=== PATIENT | female | born 1950 | race Caucasian/White ===

== ENCOUNTER → 2017-07-08 | Outpatient (CLI) | payer OTHER ==
[~2017-07-08] MED LIST: ASPIRIN325 PO; NORCO 5-325 TA1 EACH PO; ULTRAM50 MG PO
== END ==
LOC: M.MRI 13:22
DX: S83.242A Other tear of medial meniscus, current injury, left knee, initial encounter (principal); M94.262 Chondromalacia, left knee; Z91.81 History of falling; X58.XXXA Exposure to other specified factors, initial encounter; Y93.89 Activity, other specified; Y92.89 Other specified places as the place of occurrence of the external cause; Y99.8 Other external cause status

== ENCOUNTER → 2017-07-15 | Day surgery (SDC) | payer OTHER ==
[2017-07-15 11:53] LABS: HEMATOCRIT 42.3 % (37.0-47.0); HEMOGLOBIN 14.2 gm/dL (12.0-15.0); MCH 31.5 pg (26.0-34.0); MCHC 33.5 g/dL (28.0-37.0); MCV 94.1 fL (80.0-100.0); MPV 9.1 fl. (7.2-11.1); RBC 4.49 mil/uL (4.20-5.00); RDW-CV 14.4 % (10.5-14.5); WBC 4.8 thou/uL (4.0-11.0)
[2017-07-15 12:04] LABS: CREATININE 0.7 mg/dL (0.6-1.3); POTASSIUM 3.7 mmol/L (3.5-5.1)
[2017-07-15 12:09] LABS: ALBUMIN 3.4 g/dL (3.4-5.0); TOTAL BILIRUBIN 0.7 mg/dL (<0.1-1.0)
--- NOTE | 2017-07-15 17:59 | EKG ---
[place] [address] ELECTROCARDIOGRAM REPORT Name: CONSTANTIN OLIVER Room: [facility]#: [id number] Admission: 07/15/17 Attend Phys: Mario Simpson DO Discharge: Date of : 50 Report #: [id number] THIS REPORT FOR: //name// [facility] Test Date: 2017-07-15 Test Time: 11:44:57 Pat Name: CONSTANTIN OLIVER Department: Room: Gender: F Early Childhood Education Specialist: LANDON : 1950 Requested By: Mario Simpson Order Number: [id number] Reading MD: Rojas Nieves Measurements Intervals [place] Rate: 89 P: 55 MO: 154 QRS: 2 QRSD: 95 T: 65 QT: 393 QTc: 479 Interpretive Statements Sinus rhythm Atrial premature complex Low voltage, extremity leads No previous ECG available for comparison Electronically Signed On 07-15-2017 17:59:13 CDT by Rojas Nieves [email or web address] <ELECTRONICALLY SIGNED> By: Rojas Nieves MD, [facility] 07/15/17 1759 1144 1144 Rojas Nieves MD, FACC /EPI
--- NOTE | 2017-07-16 06:56 | OP ---
[address] [address] OPERATIVE REPORT Name: OLIVERCONSTANTIN Room: [facility]#: [id number] Admission: 07/15/17 Attend Phys: Mario Simpson DO Discharge: Date of : 50 Report #: [id number] THIS REPORT FOR: //name// CC: Mario Poseygopi Vora DICTATED BY: Driss Johnson DATE OF SERVICE: 07/15/2017 PREOPERATIVE DIAGNOSES: Left knee medial meniscus tear and medial tibial plateau insufficiency fracture. POSTOPERATIVE DIAGNOSES: Left knee medial meniscus tear and medial tibial plateau insufficiency fracture plus pathologic plica of the medial compartment. PROCEDURE: Left knee arthroscopy with partial medial meniscectomy, plica excision and arthroscopic assisted treatment of tibial plateau fracture with subchondroplasty. SURGEON: Mario Simpson DO. FEED RESEARCH TECHNICIAN: Driss Johnson DO ANESTHESIA: General. ESTIMATED BLOOD LOSS: Minimal. SPECIMENS: None. COMPLICATIONS: None. DRAINS: None. PREOPERATIVE ANTIBIOTICS: 2 grams Ancef IV prior to incision. FINDINGS: Surgeon's inspection of the joint arthroscopically showed a pathologic plica over the medial compartment, which did impinge on the femoral condyle with motion. Overall, the cartilage in all 3 compartments was in good condition. The femoral notch demonstrated a well vascularized and stable ACL to probing. The lateral compartment demonstrated intact meniscus and cartilage. Medial compartment demonstrated a small radial tear near the posterior root, which was probed. There was no gross instability of the meniscus overall. After subchondroplasty, there was no extravasation of material into the knee joint. [address] [address] OPERATIVE REPORT Name: JENNIFER OLIVERIFRAH Dillon Room: [facility]#: [id number] Admission: 07/15/17 Attend Phys: Mario Simpson DO Discharge: Date of : 50 Report #: [id number] INDICATIONS: The patient is a pleasant 66-year-old female with a recent onset of left knee pain after a relatively benign injury. She had severe pain and had trouble with weightbearing. An MRI revealed a large subchondral fracture of the medial tibial plateau with associated edema. There is also a small radial tear of the medial meniscus. After discussing the risks, benefits, complications, alternatives and indications to left knee arthroscopy and subchondroplasty including but not limited to bleeding, infection, neurovascular injury, continued pain, need for further surgery, DVT, PE, inherent risks of anesthesia, she was willing to proceed. Consent is available on the chart. DESCRIPTION OF PROCEDURE: The patient was seen in preoperative holding area and the operative site initialed by surgeon. She was brought back to operative suite, placed on a well-padded table in supine position. General anesthesia was induced. A well-padded tourniquet was placed on the left upper thigh and the left lower extremity was positioned in the arthroscopic leg harry. Left lower extremity was sterilely prepped and draped in normal fashion. Timeout was performed in usual fashion and all attendants were in agreement. Limb blade scalpel was used to make a lateral portal incision through the skin. Blunt trocar was used to access the joint and the camera was introduced and the knee joint was inflated with normal saline. Diagnostic arthroscopy was performed with the above-mentioned findings. Attention was turned to the medial joint space where a spinal needle was used for localization of the medial portal site. An 11 blade scalpel was used to incise the skin. Blunt trocar was used to access the joint. A probe was introduced and the appropriate structures were probed. Shaver was then introduced and a partial medial meniscectomy was performed trimming the unstable piece back to stable border. The meniscus was probed once again and found to be stable. Attention was then turned to the medial compartment where the pathologic plica was identified and resected with a shaver. The knee was brought through full range of motion showing no further impingement of the plica. Instruments were removed and attention was turned to lateral aspect of the knee as intraoperative fluoroscopy was utilized for localization of subchondroplasty area. An #11 blade scalpel was used to make a small poke hole in the skin and a blunt hemostat was used to spread down to bone. The subchondroplasty trocar was then introduced under fluoroscopic guidance to the appropriate area of medial tibial plateau. Care was taken to stay distal to the joint line. A calcium phosphate was then mixed on the back table and this was injected through the trocar. Care was taken to rotate the trocar with each application. The material was easily seen on fluoroscopic imaging, which correlated to the size of lesion on MRI. Once there was adequate fill, trocar was removed. The scope trocar was then introduced into the joint once again and the camera was introduced. Attention was then turned to medial compartment. There was no evidence of extravasation of material. The knee was thoroughly irrigated with normal saline and drained. Incisions were closed with 3-0 nylon in a simple interrupted fashion. A 30 mL of 0.25% Marcaine plain were injected in the soft tissues. Dressings were placed in the form of Xeroform gauze, 4 x 4s, ABDs, soft roll and compressive Jose wrap. [place] [address] OPERATIVE REPORT Name: JENNIFER OLIVERIFRAH Dillon Room: [facility]#: [id number] Admission: 07/15/17 Attend Phys: Mario Simpson DO Discharge: Date of : 50 Report #: [id number] and brought to PACU in stable fashion. She tolerated the procedure well. Sponge and needle counts were correct x 2. Dr. Simpson was present through all critical aspects of surgery. <ELECTRONICALLY SIGNED> By: Mario Simpson DO 07/16/17 0656 1411 1503Ckhadar Simpson DO /nt
== END | disposition home or self-care (01) ==
LOC: M.SUR 07:24
PROVIDERS: Orthopaedic Surgery
DX: S83.242A Other tear of medial meniscus, current injury, left knee, initial encounter (principal); M84.462A Pathological fracture, left tibia, initial encounter for fracture; M67.52 Plica syndrome, left knee; Z79.899 Other long term (current) drug therapy; Z79.891 Long term (current) use of opiate analgesic; Z88.2 Allergy status to sulfonamides; Z79.82 Long term (current) use of aspirin; X58.XXXA Exposure to other specified factors, initial encounter; Y93.89 Activity, other specified; Y92.89 Other specified places as the place of occurrence of the external cause; Y99.8 Other external cause status

== ENCOUNTER → 2017-09-03 | Outpatient (CLI) | payer OTHER | LOC: M.RAD 08:55 | DX: M81.0 Age-related osteoporosis without current pathological fracture (principal) ==

== ENCOUNTER → 2018-02-03 | Outpatient (CLI) | payer OTHER | LOC: M.RAD 08:23 | DX: Z12.31 Encounter for screening mammogram for malignant neoplasm of breast (principal) ==

== ENCOUNTER → 2018-02-05 | Outpatient (CLI) | payer OTHER | LOC: M.RAD 02-04 15:51 | DX: N63.11 Unspecified lump in the right breast, upper outer quadrant (principal); R92.2 Inconclusive mammogram ==

== ENCOUNTER → 2018-02-10 | Outpatient (CLI) | payer OTHER | LOC: M.ULTRA 09:12 | DX: N63.10 Unspecified lump in the right breast, unspecified quadrant (principal) ==

== ENCOUNTER 2019-03-16 15:49 | Emergency (ER) | payer OTHER ==
[~2019-03-16] VITALS: Ht 157.5 cm; Wt 81.7 kg
[2019-03-16 17:36] LABS: ABSOLUTE EOSINOPHILS 0.1 thou/uL (0.0-0.7); ABSOLUTE LYMPHOCYTES 1.3 thou/uL (0.8-5.3); ABSOLUTE MONOCYTES 0.6 thou/uL (0.0-1.2); ABSOLUTE NEUTROPHILS 2.3 thou/uL (1.6-8.1); EOSINOPHILS 2.5 %; HEMATOCRIT 39.3 % (37.0-47.0); HEMOGLOBIN 13.3 gm/dL (12.0-15.0); LYMPHOCYTES 30.3 %; MCH 32.5 pg (26.0-34.0); MCHC 33.8 g/dL (28.0-37.0); MCV 96.3 fL (80.0-100.0); MONOCYTES 14.7 %; NUCLEATED RBCS 0 /100WBC; PLATELET COUNT* 80 thou/uL (150-400); POLYS 51.5 %; RBC 4.08 mil/uL (4.20-5.00); RDW-CV 14.7 % (10.5-14.5); WBC 4.4 thou/uL (4.0-11.0)
[2019-03-16 17:44] LABS: CALCIUM 8.9 mg/dL (8.5-10.1); CREATININE 0.7 mg/dL (0.6-1.3); POTASSIUM 3.8 mmol/L (3.5-5.1)
[2019-03-16 17:49] LABS: ALBUMIN 3.5 g/dL (3.4-5.0); TOTAL BILIRUBIN 0.5 mg/dL (<0.1-1.0); TOTAL PROTEIN 6.9 g/dL (6.4-8.2)
[2019-03-16] MEDS ORDERED: NORCO 5-325 TA1 EAC1 PO (19:25)
[2019-03-16] MEDS ORDERED: IBUPROFEN 800800 M1 PO (19:25)
[2019-03-16 19:50] VITALS: BP 144/63
--- NOTE | 2019-03-17 16:06 | EKG ---
[place] [address] ELECTROCARDIOGRAM REPORT Name: CONSTANTIN OLIVER [id number] Admission: 03/16/19 Attend Phys: Discharge: 03/16/19 Date of : 50 Report #: [id number] THIS REPORT FOR: //name// [facility] ED Test Date: 2019-03-16 Test Time: 17:24:16 Pat Name: CONSTANTIN OLIVER Department: Room: Gender: F Lease Operator: NILESH : 1950 Requested By: Radha Hernandez Order Number: [id number] MD: Gabriel Waldrop Measurements Intervals [place] Rate: 85 P: 49 UT: 152 QRS: 10 QRSD: 96 T: 64 QT: 400 QTc: 476 Interpretive Statements Sinus rhythm Ventricular premature complex Low voltage, extremity leads Borderline prolonged QT interval Compared to ECG 07/15/2017 11:44:57 Ventricular premature complex(es) now present Atrial premature complex(es) no longer present Electronically Signed On 03-17-2019 16:05:58 CHIEF NURSE ANESTHETIST by Gabriel Waldrop [email or web address] <ELECTRONICALLY SIGNED> By: Gabriel Waldrop MD, [facility] 03/17/19 1605 1724 1724 Gabriel Waldrop MD, [facility] /EPI
== END 2019-03-16 19:47 | disposition home or self-care (01) ==
LOC: M.ERS 15:49
PROVIDERS: Nurse Practitioner Family
DX: S22.060A Wedge compression fracture of T7-T8 vertebra, initial encounter for closed fracture (principal); Z90.710 Acquired absence of both cervix and uterus; Z90.89 Acquired absence of other organs; Z88.2 Allergy status to sulfonamides; Z88.8 Allergy status to other drugs, medicaments and biological substances; X58.XXXA Exposure to other specified factors, initial encounter; Y93.89 Activity, other specified; Y92.89 Other specified places as the place of occurrence of the external cause; Y99.8 Other external cause status

== ENCOUNTER → 2019-04-16 | Outpatient (CLI) | payer MEDICARE, OTHER ==
[~2019-04-16] MED LIST changes: +IBUPROFEN 800800 M1 PO; +NORCO 5-325 TA1 EAC1 PO
== END ==
LOC: M.RAD 08:43
DX: Z12.31 Encounter for screening mammogram for malignant neoplasm of breast (principal)

== ENCOUNTER → 2020-08-17 | Outpatient (CLI) | payer MEDICARE, OTHER | LOC: M.RAD 13:02 | PROVIDERS: ATTEND Registered Nurse Diabetes Educator | DX: M41.86 Other forms of scoliosis, lumbar region (principal); I70.0 Atherosclerosis of aorta ==

== ENCOUNTER → 2020-08-19 | Outpatient (CLI) | payer OTHER | LOC: M.CT 12:34 | PROVIDERS: ATTEND Registered Nurse Diabetes Educator | DX: Z13.6 Encounter for screening for cardiovascular disorders (principal); I25.10 Atherosclerotic heart disease of native coronary artery without angina pectoris ==

== ENCOUNTER → 2020-08-23 | Outpatient (CLI) | payer MEDICARE, OTHER ==
[~2020-08-23] MED LIST changes: +ALPRAZOLAM 0.0.25 M1 PO; +FUROSEMIDE 20 M20 MG PO; +HYDROCODON-ACE1 EAC7 PO; +OMEPRAZOLE40 MG PO; +PROTONIX40 M4 PO; +PROZAC20 M1 PO; +SPIRONOLACTONE50 MG PO; +THYROID MED PO; +TIZANIDINE HCL4 M2 PO
== END ==
LOC: M.PC 11:34
PROVIDERS: ATTEND Anesthesiology Pain Medicine
DX: M48.54XD Collapsed vertebra, not elsewhere classified, thoracic region, subsequent encounter for fracture with routine healing (principal); M79.10 Myalgia, unspecified site; K76.0 Fatty (change of) liver, not elsewhere classified; Z88.2 Allergy status to sulfonamides; Z88.1 Allergy status to other antibiotic agents; Z79.899 Other long term (current) drug therapy; Z90.710 Acquired absence of both cervix and uterus; X58.XXXD Exposure to other specified factors, subsequent encounter

== ENCOUNTER → 2020-08-25 | Outpatient (CLI) | payer MEDICARE, OTHER | END | disposition home or self-care (01) | LOC: M.PC 11:24 | PROVIDERS: ATTEND Anesthesiology Pain Medicine | DX: M79.18 Myalgia, other site (principal); G89.29 Other chronic pain; Z98.890 Other specified postprocedural states; Z79.899 Other long term (current) drug therapy; Z88.8 Allergy status to other drugs, medicaments and biological substances; Z88.2 Allergy status to sulfonamides ==

== ENCOUNTER → 2020-09-01 | Outpatient (CLI) | payer MEDICARE, OTHER | LOC: M.MRI 08:06 | PROVIDERS: ATTEND Registered Nurse Diabetes Educator | DX: M51.26 Other intervertebral disc displacement, lumbar region (principal); M85.89 Other specified disorders of bone density and structure, multiple sites; M19.90 Unspecified osteoarthritis, unspecified site; R93.1 Abnormal findings on diagnostic imaging of heart and coronary circulation; Z87.19 Personal history of other diseases of the digestive system; Z79.899 Other long term (current) drug therapy; Z78.9 Other specified health status; E03.9 Hypothyroidism, unspecified ==

== ENCOUNTER → 2020-09-19 | Outpatient (CLI) | payer MEDICARE, OTHER | LOC: M.RAD 11:11 | PROVIDERS: ATTEND Internal Medicine | DX: R11.2 Nausea with vomiting, unspecified (principal) ==

== ENCOUNTER → 2020-10-13 | Outpatient (CLI) | payer MEDICARE, OTHER | LOC: M.RAD 15:02 | PROVIDERS: ATTEND Physician Assistant | DX: S32.030A Wedge compression fracture of third lumbar vertebra, initial encounter for closed fracture (principal); M85.88 Other specified disorders of bone density and structure, other site; R10.10 Upper abdominal pain, unspecified; M81.8 Other osteoporosis without current pathological fracture; Z98.1 Arthrodesis status; Z87.310 Personal history of (healed) osteoporosis fracture; X58.XXXA Exposure to other specified factors, initial encounter; Y93.89 Activity, other specified; Y92.89 Other specified places as the place of occurrence of the external cause; Y99.8 Other external cause status ==

== ENCOUNTER → 2020-10-31 | Outpatient (CLI) | payer MEDICARE, OTHER ==
[2020-10-31 08:57] LABS: ABSOLUTE EOSINOPHILS 0.1 thou/uL (0.0-0.7); ABSOLUTE MONOCYTES 0.6 thou/uL (0.0-1.2); BASOPHILS 0.8 %; EOSINOPHILS 1.4 %; HEMOGLOBIN 12.1 gm/dL (12.0-15.0); LYMPHOCYTES 27.9 %; MCH 31.9 pg (26.0-34.0); MCHC 33.6 g/dL (28.0-37.0); MCV 94.9 fL (80.0-100.0); MONOCYTES 15.1 %; MPV 8.4 fl. (7.2-11.1); NUCLEATED RBCS 0 /100WBC; PLATELET COUNT* 92 thou/uL (150-400); POLYS 54.8 %; RDW-CV 18.5 % (10.5-14.5); WBC 3.7 thou/uL (4.0-11.0)
[2020-10-31 09:09] LABS: ALBUMIN 2.7 g/dL (3.4-5.0); CALCIUM 8.7 mg/dL (8.5-10.1); POTASSIUM 4.1 mmol/L (3.5-5.1); TOTAL BILIRUBIN 1.6 mg/dL (<0.1-1.0); TOTAL PROTEIN 6.9 g/dL (6.4-8.2)
== END ==
LOC: M.ULTRA 10-28 11:58
PROVIDERS: ATTEND Specialist
DX: R10.10 Upper abdominal pain, unspecified (principal); K76.0 Fatty (change of) liver, not elsewhere classified

== ENCOUNTER → 2020-12-23 | Outpatient (CLI) | payer MEDICARE, OTHER ==
[~2020-12-23] MED LIST changes: +LEVO-T25 MCG PO
== END ==
LOC: M.MRI 07:16
PROVIDERS: ATTEND Orthopaedic Surgery
DX: S32.058A Other fracture of fifth lumbar vertebra, initial encounter for closed fracture (principal); S32.048A Other fracture of fourth lumbar vertebra, initial encounter for closed fracture; M48.061 Spinal stenosis, lumbar region without neurogenic claudication; M54.16 Radiculopathy, lumbar region; X58.XXXA Exposure to other specified factors, initial encounter; Y93.89 Activity, other specified; Y92.89 Other specified places as the place of occurrence of the external cause; Y99.8 Other external cause status